=== PATIENT | female | born 1990 | race Caucasian/White ===

== ENCOUNTER 2021-03-11 05:12 | Inpatient (IN) | payer BC, SELFPAY ==
[2021-03-11] VITALS (54 sets, daily range): BP systolic 86–134; BP diastolic 58–85; PULSE 56–115; RESP 16–20; TEMP 36.6–37; O2SAT 92–100; BMI 23.8
--- NOTE | 2021-03-11 05:12 | LDADM ---
This patient, Rebecca Good, was admitted to Labor/Delivery/Recovery 103 on 03/11/21 at 05:12. Plans for labor, pain management and were discussed with patient. Patient/family oriented to hospital policies and general routines including ID bracelet, bed and alarms, visiting hours, pain management, procedures, bathroom and other care routines, personal items, smoking policy, room service/diet and guest tray routines, infant security routines, and visiting hours. Patient/Family are encouraged to report perceived risks to care and to ask questions if they do not understand what they are told or what they should do. See OBIX for further documentation.
[2021-03-11 05:47] LABS: Basophils Absolute Auto 0.1 K/mm3 (0.0-0.1); Basophils Percent Auto 0.4 % (0.2-1.2); Eosinophils Absolute Auto 0.1 K/mm3 (0-0.3); Eosinophils Percent Auto 0.8 % (0-4.4); Hematocrit 33.2 % (37.0-47.0); Hemoglobin 10.9 g/dL (12.0-15.0); Immature Granulocyte Absolute 0.07 K/mm3 (0.00-0.031); Immature Granulocyte Percent A 0.6 % (0-0.5); Lymphocytes Absolute Auto 2.34 K/mm3 (0.9-3.2); Mean Corpuscular HGB Conc 32.8 g/dl (32-36); Mean Corpuscular Hemoglobin 29.6 pg (26-34); Mean Corpuscular Volume 90.2 fl (80-100); Mean Platelet Volume 10.4 fl (7.4-10.4); Monocytes Absolute Auto 0.7 K/mm3 (0.1-0.6); Monocytes Percent Auto 5.7 % (2.6-8.5); Neutrophils Absolute Auto 8.5 K/mm3 (1.3-6.7); Neutrophils Percent Auto 72.5 % (45.5-73.1); Platelet Count Result 365 k/mm3 (150-375); Red Blood Count 3.68 M/mm3 (4.2-5.4); Red Cell Distribution Width 13.7 % (11.5-14.5); White Blood Count 11.7 K/mm3 (4.5-10.0)
[2021-03-11] MEDS: LACTATED RINGERS 1,000 ML 125 ML IV CONT (06:00)
[2021-03-11] MEDS: OXYTOCIN 30 UNITS/NS 500 ML 30 UNITS/500 ML BAG IV CONT (06:00)
[2021-03-11 06:35] LABS: Rapid Plasma Reagin Non-Reactive (NonReactive)
--- NOTE | 2021-03-11 07:00 | WPDANESEPP ---
Anes - Eval Pre Procedure Procedure: Labor Epidural Date/Time: 03/11/21 07:00 Surgeon: Roselia Preop Diagnosis: Pain during labor Pre Op Diagnosis: IOL Patient Data Age: 30 Gender: F Height: 5 ft 8 in Weight: 70.9 kg Last Vital Signs Temp 36.6 C 03/11/21 06:33 Pulse 91 03/11/21 06:46 Resp 20 03/11/21 05:38 BP 107/59 L 03/11/21 06:46 Allergies Allergy/AdvReac Type Severity Reaction Status Date / Time No Known Allergies Allergy Verified 02/19/21 15:41 Home Medications Medication Instructions Recorded Confirmed Type prenat.vits,ed,vgv-oyar-hvbza 1 tablet PO DAILY 02/19/21 02/19/21 History [ #2] Laboratory Tests 03/11/21 03/11/21 03/11/21 05:34 05:34 05:34 WBC 11.7 K/mm3 H K/mm3 (4.5-10.0) RBC 3.68 M/mm3 L M/mm3 (4.2-5.4) Hgb 10.9 g/dL L g/dL (12.0-15.0) Hct 33.2 % L % (37.0-47.0) MCV 90.2 fl fl (80-100) MCH 29.6 pg pg (26-34) MCHC 32.8 g/dl g/dl (32-36) RDW 13.7 % % (11.5-14.5) Plt Count 365 k/mm3 k/mm3 (150-375) MPV 10.4 fl fl (7.4-10.4) Immature Gran % (Auto) 0.6 % H % (0-0.5) Neut % (Auto) 72.5 % % (45.5-73.1) Lymph % (Auto) 20.0 % % (18.3-44.2) [place] % (Auto) 5.7 % % (2.6-8.5) Eos % (Auto) 0.8 % % (0-4.4) Baso % (Auto) 0.4 % % (0.2-1.2) Lymph # (Auto) 2.34 K/mm3 K/mm3 (0.9-3.2) [place] # (Auto) 0.7 K/mm3 H K/mm3 (0.1-0.6) Eos # (Auto) 0.1 K/mm3 K/mm3 (0-0.3) Baso # (Auto) 0.1 K/mm3 K/mm3 (0.0-0.1) Abs Immat Gran (auto) 0.07 K/mm3 H K/mm3 (0.00-0.031) Absolute Neuts (auto) 8.5 K/mm3 H K/mm3 (1.3-6.7) Absolute Nucleated RBC 0.0 K/mm3 K/mm3 (0.0-0.012) Nucleated RBC % 0.0 % % (0.0-0.2) RPR Non-reactive (NonReactive) Blood Type A Positive Antibody Screen Negative : gestational age (JEMAL 03/16/21) Patient hx anesthesia problems: none Family hx anesthesia problems: none PMFSH Family History Family History Mother Hypertension Sibling Hypertension Fatty liver Father Type 2 diabetes mellitus Grandparent Fatty liver Cancer Breast cancer in female Lung cancer Social History Social History Smoking status: Never smoker Substance use: never Spiritual care concerns: No Exam Day of Procedure 03/11/21 07:00 Patient weight: normal Neurological: alert and oriented
--- NOTE | 2021-03-11 07:53 | PM.IMHP ---
H&P: HPI History of Present Illness Date/Time: 03/11/21 07:53 30-year-old 4 para 2 whose last menstrual period was 06/15/2020, EDC is 03/16/2021, presents at 39 weeks gestation for induction of labor. Since favorable cervix with a 6 week ultrasound confirming dates she is negative for group B strep. Chief Complaint: iol Review of Systems Review of Systems: All systems reviewed & are unremarkable except as noted in HPI and below PMFSH Family History Family History Mother Hypertension Sibling Hypertension Fatty liver Father Type 2 diabetes mellitus Grandparent Fatty liver Cancer Breast cancer in female Lung cancer Social History Social History Smoking status: Never smoker Substance use: never Spiritual care concerns: No Meds Home Medications and Allergies Home Medications Medication Instructions Recorded Confirmed Type prenat.vits,ed,oox-uqdt-lczwl 1 tablet PO DAILY 02/19/21 02/19/21 History [ #2] Allergies Allergy/AdvReac Type Severity Reaction Status Date / Time No Known Allergies Allergy Verified 02/19/21 15:41 Vital Signs Vital Signs - 24 hr 03/11/21 05:38 03/11/21 05:46 03/11/21 06:02 Temperature 98.2 F Pulse Rate 86 84 81 Respiratory Rate 20 Blood Pressure 103/61 110/67 106/59 L 03/11/21 06:16 03/11/21 06:31 03/11/21 06:33 Temperature 97.8 F Pulse Rate 74 81 Respiratory Rate Blood Pressure 104/69 103/63 03/11/21 06:46 03/11/21 07:01 03/11/21 07:16 Temperature Pulse Rate 91 74 71 Respiratory Rate Blood Pressure 107/59 L 100/69 96/60 L 03/11/21 07:31 03/11/21 07:46 Temperature Pulse Rate 77 67 Respiratory Rate Blood Pressure 102/68 103/71 Exam Const: General: no acute distress Eyes: General: appearance normal, both eyes and all related structures Neck: Neck: supple and no JVD Thyroid: thyroid normal Resp: Effort & Inspection: normal respiratory effort Auscultation: clear to auscultation bilaterally Cardio: Rate: regular rate Rhythm: regular rhythm GI: Inspection: non-distended GI Palp: Yes Soft to palpation, No Tenderness to palpation present (GI) and No Guarding due to palpation present (GI) Auscultation: normal bowel sounds : Speculum Exam - Vagina: normal appearance of the vagina Speculum Exam - Cervix: Cervical os closed ( Cervix 3/75/1. AROM clear. FHTs were reassuring) Skin: General skin exam: no rashes or lesions noted Extrem: General: normal to inspection and no edema Psych: Mental Status: mental status grossly normal Affect: normal affect H&P: Results Labs Labs: Short CBC 03/11/21 Range/Units 05:34 WBC 11.7 H (4.5-10.0) K/mm3 Hgb 10.9 L (12.0-15.0) g/dL Hct 33.2 L (37.0-47.0) % Plt Count 365 (150-375) k/mm3 Assessment and Plan Additional Plan impression: Term with favorable cervix Plan: Medical induction of labor. Spontaneous vaginal delivery is expected.
--- NOTE | 2021-03-11 11:57 | PM.OBPNVD ---
OB - PN: Subj Subjective Date/time seen: 03/11/21 11:57 cx /-1 by ruslan bo OB - PN: Obj Data Labs CBC & Chem 7: 03/11/21 05:34 Labs: Laboratory Results - last 24 hr 03/11/21 03/11/21 03/11/21 05:34 05:34 05:34 WBC 11.7 H RBC 3.68 L Hgb 10.9 L Hct 33.2 L MCV 90.2 MCH 29.6 MCHC 32.8 RDW 13.7 Plt Count 365 MPV 10.4 Immature Gran % (Auto) 0.6 H Neut % (Auto) 72.5 Lymph % (Auto) 20.0 [place] % (Auto) 5.7 Eos % (Auto) 0.8 Baso % (Auto) 0.4 Lymph # (Auto) 2.34 [place] # (Auto) 0.7 H Eos # (Auto) 0.1 Baso # (Auto) 0.1 Abs Immat Gran (auto) 0.07 H Absolute Neuts (auto) 8.5 H Absolute Nucleated RBC 0.0 Nucleated RBC % 0.0 RPR Non-reactive Blood Type A Positive Antibody Screen Negative OB - PN A/P Time Spent With Patient Time: Total time spent is greater than 50% in coordination of care (as documented) at patient's floor/unit and/or counseling patient:
--- NOTE | 2021-03-11 12:20 | P.PCNOB_ITS ---
OB - Delivery Note Procedure Delivery date: 03/11/21 Procedure: mil Intrapartal events: None Induction method: AROM Delivery augmentation: pitocin Delivery monitor: external FHT Route of delivery: Laceration Description: Perineal - 1st Degree Specimen: No Quantitative Blood Loss (ml): 58 Anesthesia type: Epidural Disposition: floor [place] Baby Date of : 03/11/21 Time of : 12:11 Weeks of gestation at delivery: 39 Infant gender: Male Weight (pounds): 8 Weight (ounces): 7 presentation: vertex position: Right Occiput Anterior Placenta delivery description: Spontaneous cord vessel description: 3 Vessels score one minute: 9 score five minutes: 9
[2021-03-11] MEDS: OXYTOCIN 30 UNITS/NS 500 ML 30 UNITS/500 ML BAG 125 UNITS IV CONT (12:49)
[2021-03-11] MEDS: WITCH HAZEL 40 PADS 1 PAD TOPICAL (13:52)
[2021-03-11] MEDS: BENZOCAINE 20% AER SPR (*SP) 56 GM CAN 1 SPRAY TOPICAL (13:52)
--- NOTE | 2021-03-11 14:30 | PC.NURSE ---
Patient transferred to post room #286 per wheelchair from labor and delivery. Support person present. Oriented to unit, room, information board, rooming in, admission packet and security measures. Patient verbalizes understanding.
[2021-03-11] MEDS: IBUPROFEN 600 MG TABLET PO ×2 (16:38→23:32)
[2021-03-12] VITALS: BP 118/76; PULSE 75; RESP 16; TEMP 36.9; O2SAT 100
[2021-03-12 04:00] VITALS: BP 100/58; PULSE 81; RESP 16; TEMP 36.7; O2SAT 99
[2021-03-12 04:57] LABS: Hematocrit 28.6 % (37.0-47.0); Hemoglobin 9.7 g/dL (12.0-15.0)
[2021-03-12] MEDS: IBUPROFEN 600 MG TABLET PO (05:30)
--- NOTE | 2021-03-12 06:52 | PM.OBPNVD ---
OB - PN: Subj Subjective Date/time seen: 03/12/21 06:52 Patient comments: no complaints and pain well controlled baby status: doing well and nursing well OB - PN: Obj Data Labs CBC & Chem 7: 03/12/21 04:29 Labs: Laboratory Results - last 24 hr 03/12/21 04:29 Hgb 9.7 L Hct 28.6 L OB - PN A/P Plan day: 1 Plan: routine care, discharge home and follow up 6 weeks Time Spent With Patient Time: Total time spent is greater than 50% in coordination of care (as documented) at patient's floor/unit and/or counseling patient: Time with patient: less than 15 minutes Review of Systems Review of Systems: All systems reviewed & are unremarkable except as noted in HPI and below Exam Const: General: no acute distress Eyes: General: appearance normal, both eyes and all related structures Neck: Neck: supple and no JVD Thyroid: thyroid normal Resp: Effort & Inspection: normal respiratory effort Auscultation: clear to auscultation bilaterally Cardio: Rate: regular rate Rhythm: regular rhythm GI: Inspection: non-distended GI Palp: Yes Soft to palpation, No Tenderness to palpation present (GI) and No Guarding due to palpation present (GI) Auscultation: normal bowel sounds : General: Yes bladder normal to palpation External Female Exam: normal external appearance Speculum Exam - Vagina: normal vaginal discharge and No vaginal bleeding Speculum Exam - Cervix: nontender Bimanual exam- vagina & uterus: bladder normal to palpation and No Cervical tenderness present OB/external & speculum: No vaginal bleeding Skin: General skin exam: no rashes or lesions noted Extrem: General: normal to inspection and no edema Psych: Mental Status: mental status grossly normal Affect: normal affect
--- NOTE | 2021-03-12 06:53 | PM.DS ---
DS: Admitting Diagnosis Admitting Diagnosis Admitting Diagnosis: term iup DS: Summary Hospital Course Hospital Course: The patient was admitted for induction of labor secondary to favorable cervix at term. Her hospital course was unremarkable. She remained afebrile she was, voiding the difficulty, breast-feeding ambulating, and generally without complaints. Routine discharge instructions were given Time Spent with Patient Time attestation: Total time spent providing and/or coordinating discharge services: Exam Const: General: no acute distress Eyes: General: appearance normal, both eyes and all related structures Neck: Neck: supple and no JVD Thyroid: thyroid normal Resp: Effort & Inspection: normal respiratory effort Auscultation: clear to auscultation bilaterally Cardio: Rate: regular rate Rhythm: regular rhythm GI: Inspection: non-distended GI Palp: Yes Soft to palpation, No Tenderness to palpation present (GI) and No Guarding due to palpation present (GI) Auscultation: normal bowel sounds : General: Yes bladder normal to palpation External Female Exam: normal external appearance Speculum Exam - Vagina: normal vaginal discharge and No vaginal bleeding Speculum Exam - Cervix: nontender Bimanual exam- vagina & uterus: bladder normal to palpation and No Cervical tenderness present OB/external & speculum: No vaginal bleeding Skin: General skin exam: no rashes or lesions noted Extrem: General: normal to inspection and no edema Psych: Mental Status: mental status grossly normal Affect: normal affect DS: Data Data Completed and Pending Labs on day of discharge: Labs from last 24 hours 03/12/21 04:29 Hgb 9.7 L Hct 28.6 L Discharge Plan Discharge Attending physician on discharge: Surya Veloz Discharging Clinician: Surya Veloz Patient Disposition: Home, Self-Care Activity: may shower, no straining and pelvic rest Diet: heart healthy Patient Instructions: Antibiotic Form Stand Alone Forms: General Discharge Information Follow-up/Referrals: Surya Veloz MD [Physician] - Discharge Medications: Continued #2 Tablet 1 tablet PO DAILY RF: 0 Date of admission: 03/11/21 05:12 Primary Care Provider: PHYSICIAN,PEDIATRIC DENTAL HYGIENIST Admitting Provider: Surya Veloz Attending physician on admission: Surya Veloz Condition: Stable
--- NOTE | 2021-03-12 07:00 | PC.NURSE ---
PT introductions made and plan of care discussed per post , pain management, breast feeding, daily care activities and pending discharge to home. PT received instructions and education through out this shift by one to one discussion with reference to mom baby care guide as resource. Pt and spouse both recipients to such instructions and no barriers to learning identified. PT verbalized understanding of such care.
[2021-03-12 07:50] VITALS: BP 103/70; PULSE 82; RESP 16; TEMP 36.7; O2SAT 98
--- NOTE | 2021-03-12 09:09 | WPDANLDPN2 ---
Anes-Prog Note L&D Date/Time: 03/12/21 09:09 Comfortable throughout: labor and delivery Neuraxial method: epidural Epidural/Spinal procedure site: clean & non-tender Neuro status: Neuro function grossly intact. Cardiovascular status: normal Respiratory status: normal Airway patency: baseline Mental status: baseline Post-Op hydration status: normal Vital Signs: Last Vital Signs Temp 36.7 C 03/12/21 07:50 Pulse 82 03/12/21 07:50 Resp 16 03/12/21 07:50 BP 103/70 03/12/21 07:50 Pulse Ox 98 03/12/21 07:50 Pain score (VAS): 11/17 I/O: Intake & Output 03/11/21 03/12/21 03/12/21 23:59 07:59 15:59 Intake Total 500 Balance 500 Post-procedural complaints: none Patient feedback: Patient satisfied with anesthetic care.
[2021-03-12 10:00] VITALS: PULSE 70; RESP 16; O2SAT 95
[2021-03-12] MEDS: DOCUSATE SODIUM 100 MG CAPSULE PO (10:07)
[2021-03-12] MEDS: POLYSACCHARIDE IRON COMPLEX 150 MG CAPSULE PO (10:07)
[2021-03-12] MEDS: MULTIVIT/MIN/PREN/FOL AC/IRON TABLET 1 TAB PO (10:08)
[2021-03-12] MEDS: ACETAMINOPHEN 325 MG TABLET 650 MG PO (10:08)
[2021-03-12] MEDS: LANOLIN (LANSINOH) 7.5 GM CREAM 1 APPLIC TOPICAL (10:10)
[2021-03-12 12:00] VITALS: BP 97/64; PULSE 70; RESP 16; TEMP 37.1; O2SAT 95
--- NOTE | 2021-03-12 13:19 | PC.NURSE ---
1035 Mother called out for assist with feeding. Consulted with patient, mother reports has fed well since . Mother has slight nipple discomfort with latch during first part of the feeding that quickly resolves. Reviewed nipple care of lanolin, warm compresses as needed. Reviewed feeding cues, frequencies, duration of feedings, feeding elimination flow sheet, and signs of adequate intake. Demonstrated stimulation techniques to wake infant for feeding. Mother puts to breast using cradle, eagerly latching with shallow latch and drawing nipple in within a few seconds. Reviewed positioning/alignment in cross cradle, holding breast in U hold and guided asymmetrical latch on. Discussed infant will latch deeply from first latch drawing nipple in quickly preventing first few seconds of pinching. Mother released latch and was able to latch quickly and deeply with minimal tenderness. nursed eagerly, with steady draws and frequent swallowing noted. Reviewed signs of a correct latch, effective nursing and suck swallow ratio. Infant was able to maintain latch. Mother reported tenderness at times, infant had slipped to shallow latch. Demonstrated how to adjust latch more deeply while feeding. Mother quickly reports she can feel infant is latched more deeply. Suggested to stimulate infant while feeding to keep awake and nursing effectively for increased stimulation, increased intake and to assist with maintaining deep latch. Mother plans on 24 hour discharge. Mother is able to independently latch infant with appropriate positioning/alignment. She is feeding as required and waking to feed if needed. has adequate # of effective feedings for hours old, and is currently meeting outcomes for weight, output, jaundice and feeding frequencies. Mother states she feels confident to continue effective at home. Reviewed transition to breast milk, signs of adequate intake, and engorgement/relief. Instructed to call ICP if intake/output less than required. Reviewed regular medications mother is taking. Information provided per Marian. Reviewed community resources on the [employer] website and in the Mom/Baby guide. Information on outpatient services provided. Mother has no further questions at this time.
--- NOTE | 2021-03-12 14:00 | PC.NURSE ---
PT received discharge instructions per protocol and verbalized understanding of such care.
--- NOTE | 2021-03-12 14:30 | PC.NURSE ---
PT discharged to home ambulatory accompanied by spouse and and taken to waiting car. Follow up appts confirmed
[2021-03-13 08:33] VITALS: BP 103/67; PULSE 84; RESP 20; TEMP 36.3; O2SAT 100
== END 2021-03-12 14:30 | disposition home or self-care (01) | DRG 807 ==
LOC: ANHLDR 05:15 → ANHOB2 14:37
PROVIDERS: Admitting Provider Obstetrics & Gynecology; Visit Provider Obstetrics & Gynecology
DX: O76 Abnormality in fetal heart rate and rhythm complicating labor and delivery (principal); Z37.0 Single live birth; O70.0 First degree perineal laceration during delivery; O69.81X0 Labor and delivery complicated by cord around neck, without compression, not applicable or unspecified; Z3A.39 39 weeks gestation of pregnancy
CPT/HCPCS: 36415; 85014; 85018; 85025; 86592; 86850; 86900; 86901; A9270; J2590; J2795; J7120